=== PATIENT | male | born 2000 | race African-American/Black ===

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

== ENCOUNTER 2020-12-28 21:08 | Emergency (ER) | payer SELFPAY ==
[2020-12-28] MEDS ORDERED: Lidocaine 2% PF 5 ML VIAL ONE (21:17)
[2020-12-28] MEDS ORDERED: Cephalexin 250 MG CAP ONE (21:30)
== END 2020-12-28 21:40 | disposition home or self-care (01) ==
LOC: BURERS 21:08
DX: L02.511 Cutaneous abscess of right hand (principal); J45.909 Unspecified asthma, uncomplicated
CPT/HCPCS: 26010; J2001

== ENCOUNTER 2021-09-01 09:58 | Emergency (ER) | payer SELFPAY | END 2021-09-01 10:26 | disposition home or self-care (01) | LOC: BURERS 09:58 | DX: H00.014 Hordeolum externum left upper eyelid (principal) | CPT/HCPCS: 99283 ==

== ENCOUNTER 2021-12-14 08:50 | Emergency (ER) | payer SELFPAY ==
[2021-12-14 09:49] LABS: Bilirubin Negative (Negative); Blood, Urine Negative (Negative); Clarity Slightly Cloudy (Clear); Glucose, Urine (Dipstick) Negative (Negative); Ketone, Urine Negative (Negative); Leukocyte Trace (Negative); Nitrite Negative (Negative); Protein, Urine (Dipstick) Trace mg/dL (Neg-Trace); Urobilinogen 0.2 mg/dL (Less than 2)
[2021-12-14] MEDS ORDERED: cefTRIAXone\\ROCEPHIN 500 MG VIAL ONE (09:57)
[2021-12-14] MEDS ORDERED: Lidocaine 1% (PF) 30 ML VIAL ONE (09:57)
[2021-12-14 09:59] LABS: Specific Gravity, Urine 1.028 (1.005-1.030)
[2021-12-14 10:03] LABS: Bacteria/HPF Rare-Few HPF (None Seen); RBC/HPF None Seen HPF (0-3); Squamous Epithelial None Seen HPF (0-3)
== END 2021-12-14 10:20 | disposition home or self-care (01) ==
LOC: BURERS 08:50
DX: N39.0 Urinary tract infection, site not specified (principal); J45.909 Unspecified asthma, uncomplicated
CPT/HCPCS: 81003; 81015; 96372; 99283; J0696; J2001

== ENCOUNTER 2022-11-08 09:30 | Emergency (ER) | payer SELFPAY ==
[2022-11-08 10:19] LABS: Bilirubin Negative (Negative); Blood, Urine Negative (Negative); Clarity Clear (Clear); Glucose, Urine (Dipstick) Negative (Negative); Ketone, Urine Negative (Negative); Leukocyte Trace (Negative); Nitrite Negative (Negative); Protein, Urine (Dipstick) Negative (Neg-Trace); pH, Urine 5.5 (5.0-9.0)
[2022-11-08 10:22] LABS: Specific Gravity, Urine 1.025 (1.002-1.036)
[2022-11-08 10:32] LABS: Bacteria/HPF 1+ HPF (None Seen); RBC/HPF None Seen HPF (0-3); Squamous Epithelial 0-3 HPF (0-3)
[2022-11-08] MEDS ORDERED: Sterile Water 10 ML ONE (10:57)
[2022-11-08] MEDS ORDERED: cefTRIAXone\\ROCEPHIN 500 MG VIAL ONE (10:57)
[2022-11-08] MEDS ORDERED: predniSONE 20 MG TAB ONE (10:58)
== END 2022-11-08 11:15 | disposition home or self-care (01) ==
LOC: BURERS 09:30
DX: J06.9 Acute upper respiratory infection, unspecified (principal); N34.2 Other urethritis; J45.909 Unspecified asthma, uncomplicated
CPT/HCPCS: 81003; 81015; 96372; 99283; J0696; J7512

== ENCOUNTER 2022-11-26 13:06 | Emergency (ER) | payer SELFPAY ==
[2022-11-26] MEDS ORDERED: Dexamethasone 4 MG TAB ONE (14:15)
== END 2022-11-26 14:21 | disposition home or self-care (01) ==
LOC: BURERS 13:06
DX: J06.9 Acute upper respiratory infection, unspecified (principal); J45.909 Unspecified asthma, uncomplicated; Z79.899 Other long term (current) drug therapy
CPT/HCPCS: 99283; J8540

== ENCOUNTER 2023-08-23 19:34 | Emergency (ER) | payer SELFPAY | END 2023-08-23 19:53 | disposition home or self-care (01) | LOC: BURERS 19:34 | DX: S40.021A Contusion of right upper arm, initial encounter (principal); J45.909 Unspecified asthma, uncomplicated; Z79.51 Long term (current) use of inhaled steroids; W20.8XXA Other cause of strike by thrown, projected or falling object, initial encounter | CPT/HCPCS: 99283 ==